=== PATIENT | female | born 1995 | race African-American/Black ===

== ENCOUNTER 2016-09-02 19:08 | Emergency (ER) | payer SELFPAY ==
[~2016-09-02] VITALS: Ht 165.1 cm; Wt 135.5 kg
[~2016-09-02 19:08] MED LIST: IBUP800T23 PO; PRED50 PO
[2016-09-02 19:11] VITALS: BP 139/89; PULSE 97; RESP 15; TEMP 99.1; O2SAT 97
== END 2016-09-03 01:50 | disposition left against medical advice (07) ==
LOC: NED 19:08
DX: R19.7 Diarrhea, unspecified (principal); R11.10 Vomiting, unspecified; Z53.21 Procedure and treatment not carried out due to patient leaving prior to being seen by health care provider
CPT/HCPCS: 99281

== ENCOUNTER 2017-05-08 12:21 | Emergency (ER) | payer OTHER, MEDICAID ==
[~2017-05-08] VITALS: Ht 165.1 cm; Wt 118.0 kg
[2017-05-08 12:26] VITALS: BP 142/79; PULSE 92; RESP 16; TEMP 99; O2SAT 99
[2017-05-08] MEDS ORDERED: ACETAMINOPHEN/HYDROcodone 325 MG/5 MG TAB PO ONE (12:30)
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
[2017-05-08] MEDS ORDERED: IBUP-232 PO (14:14)
--- NOTE | 2017-05-08 14:32 | EKG ---
Date Performed: 05/08/2017 Time Performed: 12:29:38 PTAGE: 21 years EKG: Sinus rhythm NORMAL ECG No significant change from prior electrocardiogram. PREVIOUS TRACING : 05/24/2016 18.43 DOCTOR: Kirby Zarate Interpretating Date/Time 05/08/2017 14:31:50
== END 2017-05-08 14:29 | disposition home or self-care (01) ==
LOC: PHED 12:21
DX: S20.219A Contusion of unspecified front wall of thorax, initial encounter (principal); V49.49XA Driver injured in collision with other motor vehicles in traffic accident, initial encounter; Y92.410 Unspecified street and highway as the place of occurrence of the external cause
CPT/HCPCS: 71010; 72050; 72072; 93005

== ENCOUNTER 2017-08-30 22:29 | Emergency (ER) | payer OTHER, MEDICAID ==
[~2017-08-30 22:29] MED LIST changes: +IBUP-232 PO; -IBUP800T23 PO; -PRED50 PO
[2017-08-30 22:31] VITALS: BP 134/67; PULSE 95; RESP 20; TEMP 98.8; O2SAT 100
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
[2017-08-31] MEDS ORDERED: IBUP-232 PO (01:32)
[2017-08-31] MEDS ORDERED: ROBA750T PO (01:32)
[2017-08-31 01:55] VITALS: BP 131/76
== END 2017-08-31 01:58 | disposition home or self-care (01) ==
LOC: PHED 22:29
DX: S16.1XXA Strain of muscle, fascia and tendon at neck level, initial encounter (principal); S29.019A Strain of muscle and tendon of unspecified wall of thorax, initial encounter; S39.012A Strain of muscle, fascia and tendon of lower back, initial encounter; V49.59XA Passenger injured in collision with other motor vehicles in traffic accident, initial encounter; Y92.410 Unspecified street and highway as the place of occurrence of the external cause
CPT/HCPCS: 72040; 72072; 72100; 84703; 99284